=== PATIENT | female | born 1940 | race Caucasian/White ===

== ENCOUNTER → 2016-06-10 | Outpatient (CLI) | payer MEDICARE ==
[~2016-06-10] MED LIST: CALC-52 PO; CYAN250T PO; FENO160T5 PO; FISH1CAP28 PO; GARL1000 PO; LORA-610 PO; OMEP20CA10 PO
--- NOTE | 2016-06-11 08:16 | DI ---
Indication: ITS.REASON: R51 BROOKE; R42 VERTIGO; R27.8 POOR BALANCE PROCEDURE: MRI BRAIN W/O CONTRAST: Encounter: Initial Comparisons: August 30, 2015 Technique: Multiplanar, multisequence, MR imaging of the head without contrast was acquired. FINDINGS: The ventricles are of normal size, shape, and contour for the patient's age. There are small nonspecific punctate areas of T2-weighted and T2 FLAIR weighted signal abnormality in the deep frontoparietal white matter that most likely represent small vessel ischemic disease. This is of a degree that is considered to be normal for the patient's age. The brain stem, cerebellum, and cerebral hemispheres otherwise have a normal morphologic appearance as well as MR signal intensity on all pulse sequences. There are no areas of restricted diffusion on diffusion weighted imaging to suggest an acute infarct. There is no evidence of an intracranial mass lesion, intracranial hemorrhage, or hydrocephalus. The visualized portions of the orbits, calvarium, paranasal sinuses, and skull base demonstrate no significant abnormality. IMPRESSION: Unremarkable MRI of the head for the patient's age without contrast. .
== END ==
LOC: EEVIPCON 16:58 → IMA 16:58
PROVIDERS: ATTEND Physician Assistant
DX: R51 Headache (principal); R42 Dizziness and giddiness